=== PATIENT | female | born 1970 | race Asian ===

== ENCOUNTER 2022-08-23 10:58 | Day surgery (SDC) | payer OTHER ==
[~2022-08-23] VITALS: Ht 157.5 cm; Wt 50.3 kg
[2022-08-23] MEDS ORDERED: fentaNYL citrate 0.05 MG/ML VIAL ONE (12:00)
[2022-08-23] MEDS ORDERED: LIDOCAINE 2% 100 MG/5 ML UJET TP ONE (12:00)
[2022-08-23] MEDS ORDERED: fentaNYL citrate 0.05 MG/ML VIAL IVP ONE (15:25)
== END 2022-08-23 13:05 | disposition home or self-care (01) ==
LOC: MDS 10:58 → MMU 10:59 → MDS 13:05
PROVIDERS: ATTEND Internal Medicine Gastroenterology
DX: Z12.11 Encounter for screening for malignant neoplasm of colon (principal); E78.00 Pure hypercholesterolemia, unspecified; Z20.822 Contact with and (suspected) exposure to COVID-19; Z79.899 Other long term (current) drug therapy
CPT/HCPCS: 45378; 87426; J3010